=== PATIENT | male | born 1965 | race Caucasian/White ===

== ENCOUNTER 2022-12-31 06:00 | Outpatient (RCR) | payer MEDICARE, MEDICAID, SELFPAY | END 2023-01-15 23:59 | disposition home or self-care (01) | LOC: MOT 06:00 | PROVIDERS: Family Provider Physician Assistant Medical; Visit Provider Orthopaedic Surgery | DX: S61.432D Puncture wound without foreign body of left hand, subsequent encounter (principal); W32.0XXD Accidental handgun discharge, subsequent encounter | CPT/HCPCS: 97018; 97022; 97110; 97140; 97166 ==

== ENCOUNTER 2023-01-16 06:00 | Outpatient (RCR) | payer MEDICARE, MEDICAID, SELFPAY | END 2023-02-14 23:59 | disposition home or self-care (01) | LOC: MOT 06:00 | PROVIDERS: PCP Physician Assistant Medical; Visit Provider Orthopaedic Surgery | DX: S61.432D Puncture wound without foreign body of left hand, subsequent encounter (principal); W34.00XD Accidental discharge from unspecified firearms or gun, subsequent encounter | CPT/HCPCS: 97022; 97110; 97140 ==

== ENCOUNTER 2023-02-15 06:00 | Outpatient (RCR) | payer MEDICARE, MEDICAID, SELFPAY | END 2023-03-17 23:59 | disposition home or self-care (01) | LOC: MOT 06:00 | PROVIDERS: PCP Physician Assistant Medical; Visit Provider Orthopaedic Surgery | DX: S61.432D Puncture wound without foreign body of left hand, subsequent encounter (principal); W34.00XD Accidental discharge from unspecified firearms or gun, subsequent encounter | CPT/HCPCS: 97022; 97110; 97140 ==

== ENCOUNTER 2023-02-23 06:00 | Outpatient (RCR) | payer MEDICARE, MEDICAID, SELFPAY | END 2023-03-17 23:59 | disposition home or self-care (01) | LOC: MOT 06:00 | PROVIDERS: PCP Physician Assistant Medical; Visit Provider Orthopaedic Surgery | DX: S61.432D Puncture wound without foreign body of left hand, subsequent encounter (principal); W34.00XD Accidental discharge from unspecified firearms or gun, subsequent encounter | CPT/HCPCS: 97022; 97035; 97110; 97140 ==

== ENCOUNTER 2023-03-18 06:00 | Outpatient (RCR) | payer MEDICARE, MEDICAID, SELFPAY | END 2023-04-16 23:59 | disposition home or self-care (01) | LOC: MOT 06:00 | PROVIDERS: PCP Physician Assistant Medical; Visit Provider Orthopaedic Surgery | DX: S61.432D Puncture wound without foreign body of left hand, subsequent encounter (principal); W34.00XD Accidental discharge from unspecified firearms or gun, subsequent encounter | CPT/HCPCS: 97022; 97110; 97140 ==

== ENCOUNTER → 2024-02-01 10:36 | Outpatient (BNVA) | payer MEDICARE, MEDICAID, SELFPAY | PROVIDERS: PCP Physician Assistant Medical; Visit Provider Nurse Practitioner | DX: R05.9 Cough, unspecified (principal) | CPT/HCPCS: 87400 ==